=== PATIENT | female | born 1965 | race African-American/Black ===

== ENCOUNTER 2020-04-25 17:48 | Inpatient (IN) | payer OTHER, SELFPAY ==
[~2020-04-25] VITALS: Ht 170.2 cm; Wt 140.7 kg
[2020-04-25 19:25] LABS: BASOPHIL % 0.4 % (0-2); PLATELET COUNT 295 x10^3mcL (130-400)
[2020-04-25 19:31] LABS: CALCIUM 9.1 mg/dL (8.5-10.1); CARBON DIOXIDE 33.1 mmol/L (21-32); CREATININE SERUM 1.4 mg/dL (0.6-1.0); POTASSIUM SERUM 4.8 mmol/L (3.5-5.1)
[2020-04-25 19:57] LABS: ALBUMIN 3.8 g/dL (3.4-5.0); BILIRUBIN TOTAL 0.42 mg/dL (0.20-1.00); C REACTIVE PROTEIN 1.1 mg/dL (<=0.9); TOTAL PROTEIN, SERUM 7.9 g/dL (6.4-8.2)
[2020-04-25 20:05] LABS: UA SPECIFIC GRAVITY >=1.030 (1.005-1.035); microscopic required? YES; urine erythrocyte NEGATIVE (NEGATIVE)
[2020-04-25 20:18] LABS: CK-MB 0.5 ng/mL (0-3.6)
[2020-04-25 21:13] LABS: FREE T4 0.76 ng/dL (0.76-1.46); FREE THYROXINE INDEX 1.7 ug/dL (1.4-4.5); T3 TOTAL 0.58 ng/mL; T4(THYROXINE) 4.6 ug/dL (4.7-13.3)
[2020-04-25] MEDS ORDERED: ATORVASTATIN CA10 M1 PO (21:31)
[2020-04-25] MEDS ORDERED: LASIX80 MG PO (21:32)
[2020-04-25] MEDS ORDERED: GRALISE600 M2 PO (21:33)
[2020-04-25] MEDS ORDERED: CARVEDILOL ER40 MG PO (21:34)
[2020-04-25 21:38] LABS: ERYTHROCYTE SED RATE 50 mm/hr (0-30)
[2020-04-25 23:33] VITALS: BP 122/75
[2020-04-25 23:41] VITALS: Ht 170.2 cm; Wt 140.7 kg
[2020-04-25 23:51] VITALS: BP 122/75
[2020-04-26 07:17] LABS: BASOPHIL % 0.4 % (0-2); PLATELET COUNT 270 x10^3mcL (130-400)
[2020-04-26 07:29] LABS: RED CELL DISTRIBUTION WIDTH 17.6 % (11.5-14.5)
[2020-04-26 07:41] LABS: ALBUMIN 3.4 g/dL (3.4-5.0); BILIRUBIN TOTAL 0.36 mg/dL (0.20-1.00); CALCIUM 9.2 mg/dL (8.5-10.1); CREATININE SERUM 1.3 mg/dL (0.6-1.0); MAGNESIUM 2.1 mg/dL (1.8-2.4); PHOSPHOROUS 4.3 mg/dL (2.5-4.9); POTASSIUM SERUM 4.9 mmol/L (3.5-5.1); TOTAL PROTEIN, SERUM 7.2 g/dL (6.4-8.2)
[2020-04-26 07:44] LABS: CHOLESTEROL/HDL RATIO 5.3
[2020-04-26 08:15] VITALS: BP 146/75
[2020-04-26 11:38] VITALS: BP 149/57
[2020-04-26 16:40] VITALS: BP 162/66
[2020-04-26 20:49] VITALS: BP 145/76
[2020-04-27 06:24] VITALS: BP 135/65
[2020-04-27 08:36] VITALS: BP 148/72
[2020-04-27 12:30] VITALS: BP 106/55
[2020-04-27 12:33] VITALS: BP 106/55
== END 2020-04-27 14:04 | disposition home or self-care (01) | DRG 194 ==
LOC: ED 17:48 → DU 21:43
PROVIDERS: Specialist; ADMIT Hospitalist; ATTEND Hospitalist
DX: I11.0 Hypertensive heart disease with heart failure (principal); J96.21 Acute and chronic respiratory failure with hypoxia; E11.9 Type 2 diabetes mellitus without complications; I50.9 Heart failure, unspecified; E66.01 Morbid (severe) obesity due to excess calories; J43.9 Emphysema, unspecified; Z20.828 Contact with and (suspected) exposure to other viral communicable diseases; Z68.43 Body mass index [BMI] 50.0-59.9, adult
CPT/HCPCS: 36600; 82962; 83880; 84439; 97112-GP; 97116-GP; 97530-GP; G0378; J1644; J1940